=== PATIENT | male | born 1990 | race Caucasian/White ===

== ENCOUNTER 2025-02-15 19:27 | Emergency (ER) | payer OTHER ==
[2025-02-15] MEDS: Diphtheria,Pertussis(Acell),Tetanus Vaccine 0.5 ML Syringe IM ONE (21:22)
== END 2025-02-15 21:35 | disposition home or self-care (01) ==
LOC: SUPCPDRO 19:27 → VM.ED 19:27
DX: S60.511A Abrasion of right hand, initial encounter (principal); S80.212A Abrasion, left knee, initial encounter; Z23 Encounter for immunization; V49.49XA Driver injured in collision with other motor vehicles in traffic accident, initial encounter; Y93.89 Activity, other specified
CPT/HCPCS: 73130-RT; 90471; 90715; 99284; 99284-25